=== PATIENT | female | born 1960 | race Caucasian/White ===

== ENCOUNTER 2019-03-25 10:28 | Emergency (ER) | payer MEDICAID, SELFPAY ==
[2019-03-25 10:32] VITALS: BP 112/82; PULSE 100; RESP 16; TEMP 36.8; O2SAT 100
[2019-03-25 10:40] VITALS: RESP 16
--- NOTE | 2019-03-25 10:40 | ED.GENADUL_ITS ---
Discharge Plan Disposition Patient Disposition: HOME Condition: Stable Discharge Details Chief Complaint: GenMedical Clinical Impression: Medication refill Primary Care Provider: None,None ED Provider: Carly Ku Home Meds and New Rx's Prescriptions: Continued trazodone 50 mg Tablet 25 mg PO QHS 14 Days Qty: 7 RF: 0 sertraline 100 mg Tablet 100 mg PO DAILY 14 Days Qty: 14 RF: 0 Discharge Instructions Instructions: Medicine Refill (ED) Additional Instructions: Take your medications as directed. You will receive a call from care management regarding a follow up appointment with a primary care doctor in the next 1-2 weeks. Return to the emergency department with any concerns. Discharge Data Discharge Physician: Carly Ku Medical Decision Making 58yo F presents to the ED w/ a request for medication refill. She ran out of her trazodone and sertraline in December 2018. Pt has been taking trazadone 25mg qhs and sertraline 100mg daily for the past 5 years. She recently moved here and her pcp would not refill her meds without an office visit and she states she did not have a car or insurance. She states she recently got a car and medicaid started today. She presents with prescription bottles of trazadone 50mg qhs and sertaline 100mg daily which were filled September 2018 and lasted 3 months. She states she has been feeling extremely anxious and depressed but denies any suicidal ideation. She does not want to speak with care management or behavioral health at this time. As she presents with her prescription bottles - will refill for a 2-week supply. She was placed on care management list to arrange for follow-up appointment the next 7 to 10 days to establish care and to continue her meds. Medical Records Medical records reviewed: Yes I reviewed the patient's medical records. HPI General Mode of arrival: ambulatory . Date/Time Provider Initiated Documentation: 03/25/19 10:29 . Limitations to Documentation: no limitations . Information obtained by: patient . HPI Narrative: Pt is a 58yo F with a history of anxiety and depression who presents with request for medication refill. Patient states she has been taking half tablet 50 mg trazodone at night and 100 mg of sertraline daily for the past 5 years. Her primary care doctor is Dr. Jerry Puckett at [facility] who has been prescribing this for her. She states that she ran out of these medications in December around the time she moved and her primary care doctor would not refill this for her unless she had an office visit which she states she was unable to due to to lack of having a car. She also states her Medicaid insurance was activated today. She states she went to [facility] office today for the initiation of her medicaid but she was referred to the ER for a refill of her meds. She states she has been dealing with her anxiety and depression for months and feels overwhelmed but denies any suicidal ideation. She denies any acute medical complaints. Related Data Home Medications Medication Instructions Recorded Confirmed sertraline 100 mg PO DAILY 14 Days #14 tab 03/25/19 trazodone 25 mg PO QHS 14 Days #7 tab 03/25/19 Previous Rx's Medication Instructions Recorded sertraline 100 mg PO DAILY 14 Days #14 tab 03/25/19 trazodone 25 mg PO QHS 14 Days #7 tab 03/25/19 General Stated Complaint: GenMedical MEGHAN: 5 Review of Systems Review of Systems ROS Unobtainable: All systems reviewed & are unremarkable except as noted in HPI and below Constitutional Constitutional: Reports as per HPI, Denies chills and Denies fever(s) Eyes Eyes: Denies blurry vision ENT Ears, Nose, Mouth, and Throat: Denies dizziness, Denies sore throat and Denies throat swelling Cardiovascular Cardiovascular: Denies chest pain and Denies dyspnea Respiratory Respiratory: Denies cough and Denies dyspnea Gastrointestinal Gastrointestinal: Denies abdominal pain, Denies diarrhea and Denies vomiting Genitourinary Genitourinary: Denies hematuria and Denies dysuria Musculoskeletal Musculoskeletal: Denies back pain and Denies numbness Integumentary/Breasts Skin/Breast: Denies lesions and Denies rash Neurologic Neurologic: Denies dizziness, Denies focal weakness and Denies numbness Allergic/Immunologic Allergic/Immunologic: Denies throat swelling [facility] Medical History Anxiety (Chronic) Depression (Chronic) Social History Smoking/Tobacco Use Status: Never Alcohol Intake: current Alcohol Intake frequency: a few times a week Substance use type: does not use Do you feel safe at home: Yes Do you feel safe in your relationship?: Yes Exam Const General: cooperative, healthy appearing and no acute distress HENMT Head: normal to inspection Face and sinus: normal facial exam Eyes General: appearance normal, both eyes and all related structures Pupils: PERRL EOM: EOM intact bilaterally Neck Neck: normal visual inspection and No submandibular swelling Lymphatic: no lymphadenopathy noted Chest Chest: normal inspection of the chest and no tenderness Resp Effort & Inspection: normal respiratory effort and able to speak in complete sentences Auscultation: clear to auscultation bilaterally Cardio Rate: regular rate Rhythm: regular rhythm GI Inspection: normal to inspection Skin General skin exam: no rashes or lesions noted Neuro General: alert, awake and oriented x3 Cognition: normal cognition Speech: speech normal Motor: muscle tone normal throughout Sensory Exam: no sensory deficits noted Extrem General: normal to inspection, full ROM, normal capillary refill, no calf tenderness bilaterally and no edema Psych Appearance: grossly normal Mental Status: mental status grossly normal Speech and Movement: speech and movement normal Affect: normal affect Course Vital Signs Vital signs: Vital Signs Temperature 98.2 F 03/25/19 10:32 Pulse 100 H 03/25/19 10:32 Respiratory Rate 16 03/25/19 10:32 Blood Pressure 112/82 03/25/19 10:32 Pulse Oximetry 100 03/25/19 10:32 Temperature 98.2 F 03/25/19 10:32 Temperature Source Skin 03/25/19 10:32 Pulse 100 H 03/25/19 10:32 Respiratory Rate 16 03/25/19 10:32 Respiratory Effort Non-Labored 03/25/19 10:34 Blood Pressure 112/82 03/25/19 10:32 Blood Pressure Position Supine 03/25/19 10:32 Pulse Oximetry 100 03/25/19 10:32 Oxygen Delivery Method Room Air 03/25/19 10:32 Oxygen Flow Rate 0 03/25/19 10:32
== END 2019-03-25 11:07 | disposition home or self-care (01) ==
LOC: ER 11:09
PROVIDERS: Emergency Provider Physician Assistant
DX: F41.8 Other specified anxiety disorders (principal); Z91.14 Patient's other noncompliance with medication regimen
CPT/HCPCS: 99283